=== PATIENT | female | born 1955 | race Caucasian/White ===

== ENCOUNTER 2017-10-05 18:35 | Emergency (ER) ==
[2017-10-05 18:42] VITALS: BP 138/85; TEMP 98.5; BMI 31.4
--- NOTE | 2017-10-05 19:09 | ED.PDOC ---
General ED Provider: Dr. LORRI BERGER-ER Chief Complaint: Extremity Pain/Injury Stated Complaint: i fell on my wrist this am--its hurting still Time Seen by Physician: 19:00 Mode of Arrival: Walk-In Information Source: Patient Exam Limitations: No limitations Nursing and Triage Documentation Reviewed and Agree: Yes Does patient meet sepsis criteria?: No System Inflammatory Response Syndrome: Not Applicable Sepsis Protocol: For patient's 13 years and over: Temp is 96.8 and below OR 101 and greater Pulse >90 BPM Resp >20/minute Acutely Altered Mental Status Are patient's symptoms suggestive of a new infection, such as: -Pneumonia -Skin, Soft Tissue -Endocarditis -UTI -Bone, Joint Infection -Implantable Device -Acute Abdominal Infection -Wound Infection -Meningitis -Blood Stream Catheter Infection -Unknown Musculoskeletal Complaint Exam - Hand/Wrist Complaint/Exam Location of Pain: Reports: Right, Wrist Mechanism of Injury: Reports: Trauma Onset/Duration: 12 hrs Symptoms Are: Still present Onset of Pain: Reports: Immediate Initial Severity: Mild Current Severity: Moderate Location: Reports: Discrete (right wrist) Character: Reports: Dull, Aching, Throbbing, Spasmodic, Stiffness Aggravating: Reports: Movement Associated Signs and Symptoms: Denies: Swelling, Redness, Bruising, Fever, Weakness, Numbness, Tingling Hand/Wrist Findings: Present: Swelling Tenderness: Present: Radius, Ulna Compartment Syndrome Risk Factors: Present: Pain Differential Diagnoses: Contusion, Closed Fracture Review of Systems - Review Of Systems Constitutional: Reports: No symptoms Eyes: Reports: No symptoms Ears, Nose, Mouth, Throat: Reports: No symptoms Respiratory: Reports: No symptoms Cardiac: Reports: No symptoms GI: Reports: No symptoms : Reports: No symptoms Musculoskeletal: Reports: Joint pain, Joint swelling Skin: Reports: No symptoms Neurological: Reports: No symptoms Endocrine: Reports: No symptoms Hematologic/Lymphatic: Reports: No symptoms All Other Systems: Reviewed and Negative Past Medical History - Past Medical History Previously Healthy: No Endocrine: Reports: None Cardiovascular: Reports: None Respiratory: Reports: None Hematological: Reports: None Gastrointestinal: Reports: PUD Genitourinary: Reports: None Neuro/Psych: Reports: None Musculoskeletal: Reports: None Cancer: Reports: None Last Menstrual Period: 1987 - Surgical History General Surgical History: Reports: Appendectomy - Family History Family History: Reports: None - Social History Smoking Status: Current every day smoker Hx Substance Use: No Alcohol Screening: None - Immunizations Tetanus Shot up to Date: Yes Physical Exam - Physical Exam Appearance: Well-appearing, No pain distress, Well-nourished Pain Distress: Moderate Eyes: KIRAN ENT: Ears normal, Nose normal, Oropharynx normal Neck: Supple Respiratory: Airway patent, Breath sounds clear, Breath sounds equal, Respirations nonlabored Cardiovascular: RRR GI/: Soft, Nontender, No masses, Bowel sounds normal, No Organomegaly Musculoskeletal: Limited ROM Skin: Warm, Dry, Normal color Neurological: Sensation intact, Motor intact, Reflexes intact, Cranial nerves intact, Alert, Oriented Psychiatric: Affect appropriate, Mood appropriate Interpretation - Radiology Interpretation Radiology Interpretation By: ED Physician Radiology Results: Positive Procedures - Splinting Location: right wrist Hand-Made Type: Orthoglass Splint: Wrist Pre-Proc Neuro Vasc Exam: Normal Post-Proc Neuro Vasc Exam: Normal Progress: the splint was applied by nursing staff Critical Care Note - Critical Care Note Total Time (mins): 0 Course - Course Orders, Labs, Meds: Orders Category Date Time Status WRIST, RIGHT 3 VIEWS Stat RADS 10/05/17 18:47 Taken Vital Signs: Temp Pulse Resp BP Pulse Ox 10/05/17 18:36 98.5 F 100 H 20 138/85 96 Departure - Departure Time of Disposition: 19:08 Disposition: HOME SELF-CARE Discharge Problem: Injury, wrist Qualifiers: Encounter type: initial encounter Laterality: right Qualified Code(s): S69.91XA - Unspecified injury of right wrist, hand and finger(s), initial encounter Instructions: Wrist Fracture in Adults (ED) Condition: Good Pt referred to PMD for follow-up: Yes IPMP verified?: No Additional Instructions: norco 7.5mg q 4hrs prn pain #10--stay in splint--keep elevated to keep swelling down--see dr carmichael tomorrow for ortho referral Allergies/Adverse Reactions: Allergies No Known Allergies Allergy (Unverified 10/05/17 18:44) Home Medications: Ambulatory Orders 1 [No Reported Medications] 10/05/17 Disposition Discussed With: Patient, Family
--- NOTE | 2017-10-06 07:48 | DI ---
EXAM: Radiographs, right wrist HISTORY: Initial presentation for right wrist injury. COMPARISON: None available. TECHNIQUE: Three views. FINDINGS: Bone mineralization is decreased. 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 Question no old fracture d eformity of the base of the fifth metacarpal. No acute fracture or dislocation detected. No localiz ed soft tissue abnormality is seen. IMPRESSION: No acute fracture or dislocation.
== END 2017-10-05 19:22 | disposition home or self-care (01) ==
LOC: ED 18:35
DX: S69.91XA Unspecified injury of right wrist, hand and finger(s), initial encounter (principal); W19.XXXA Unspecified fall, initial encounter; F17.210 Nicotine dependence, cigarettes, uncomplicated
CPT/HCPCS: 99282